=== PATIENT | female | born 1975 | race Caucasian/White ===

== ENCOUNTER 2022-11-19 05:41 | Outpatient (CLI) | payer BC ==
[~2022-11-19] VITALS: Ht 167.6 cm; Wt 123.4 kg
[2022-11-27] MEDS ORDERED: AMLO-250 PO (15:13)
[2022-11-27] MEDS ORDERED: FLUO20CA42 PO (15:13)
[2022-11-27] MEDS ORDERED: RT-ALBUINH INH (15:13)
[2022-11-27] MEDS ORDERED: ATOR10TA66 PO (15:13)
[2022-11-27] MEDS ORDERED: SEMA7TAB2 PO (15:13)
== END 2022-11-27 15:21 | disposition home or self-care (01) ==
LOC: PREOP 05:41
PROVIDERS: ATTEND Internal Medicine
DX: Z01.818 Encounter for other preprocedural examination (principal)

== ENCOUNTER → 2022-12-03 | Outpatient (CLI) | payer BC ==
[~2022-12-03] MED LIST: AMLO-250 PO; ATOR10TA66 PO; FLUO20CA42 PO; RT-ALBUINH INH; SEMA7TAB2 PO
--- NOTE | 2022-12-03 15:00 | Diagnostic Imaging Report ---
INDICATION: Palpable lump in the upper outer right breast. COMPARISON: No prior mammograms are available for comparison. TECHNIQUE: 2D and 3D bilateral diagnostic mammography was performed with CAD. A marker was placed at the area of palpable abnormality in the upper outer right breast. FINDINGS: Scattered fibroglandular densities are noted bilaterally. No mass or malignant-appearing microcalcifications are seen. Specifically, no underlying abnormality at the area of palpable abnormality in the upper outer right breast is identified. There are scattered benign calcifications. The axillae are unremarkable. IMPRESSION: No mammographic features suspicious for malignancy are identified. Even so, directed sonographic interrogation of the palpable abnormality in the upper outer right breast is recommended and will be performed today. ACR BI-RADS Category 0: Incomplete. (Needs additional imaging evaluation). Result letter will be mailed to the patient. Note: At least 10% of breast cancer is not imaged by mammography. Dictated by: Dictated on workstation # [id number]
--- NOTE | 2022-12-03 16:52 | Diagnostic Imaging Report ---
INDICATION: Palpable lump right breast. Correlation is made with diagnostic mammogram earlier same day. Sonographic interrogation of the area of lump in the outer right breast was performed. No sonographic abnormality is seen. No solid or cystic mass is detected. IMPRESSION: No sonographic abnormality is identified. ACR BI-RADS Category 1: Negative. Result letter will be mailed to the patient. Note: At least 10% of breast cancer is not imaged by mammography. BI-RADS Category 1 Dictated by: Dictated on workstation # [id number]
== END ==
LOC: RAD 13:55
PROVIDERS: ATTEND Nurse Practitioner Family
DX: N63.12 Unspecified lump in the right breast, upper inner quadrant (principal)
CPT/HCPCS: 76642; 77066; G0279; 77062

== ENCOUNTER 2022-12-19 09:34 | Day surgery (SDC) | payer BC ==
--- NOTE | 2022-11-14 05:38 | HISTORY AND PHYSICAL ---
COLONOSCOPY HISTORY AND PHYSICAL HISTORY OF PRESENT ILLNESS: The patient is a 47-year-old white female being referred for her first screening colonoscopy. She is deemed to be of average risk because she is not aware of any family history for colon cancer or colon polyps. She denies bright red blood per rectum, melena or change in bowel habit. PAST MEDICAL HISTORY: Significant for type 2 diabetes. She takes [ ] for hypertension and hyperlipidemia. Other medications include amlodipine 5 mg daily, atorvastatin 10 mg daily, fluoxetine 20 mg daily. She has no known history of coronary artery disease. PAST SURGICAL HISTORY: She has had total abdominal hysterectomy and 3 C-sections in the past. SOCIAL HISTORY: She is employed with no past smoking history and occasional small volume alcohol intake. REVIEW OF SYSTEMS: CONSTITUTIONAL: Denies night sweats, chills, fever or change in weight. PULMONARY: Denies cough, wheezing or shortness of breath. CARDIOVASCULAR: Denies chest discomfort, orthopnea, PND, or pedal edema. GASTROINTESTINAL: As noted in the HPI. FAMILY HISTORY: Mother is living, age 68 with no health problems. Father living, age 69 with history of migraine headaches. PHYSICAL EXAMINATION: GENERAL: Reveals a white female, appeared to be in no acute distress. VITAL SIGNS: Weight 279 pounds, blood pressure 130/80. HEENT: Unremarkable. Sclerae nonicteric. CHEST: Clear to auscultation. CARDIOVASCULAR: Reveals a regular rate and rhythm without murmur, S3, or S4. ABDOMEN: Soft, supple without mass, organomegaly, or tenderness. EXTREMITIES: Revealed no cyanosis, clubbing or edema. ASSESSMENT AND PLAN: The patient is being set up for her first screening colonoscopy deemed to be of average risk. Prep instructions were given and questions were answered. I thank you for the referral of this pleasant lady. Job ID: [id number] DocumentID: [id number] Dictated Date: 11/10/2022 16:39:33 Bloom Conveyor Operator Date: 11/10/2022 16:59:00 Dictated By: SHAQUILLE TEAGUE MD
[~2022-12-19] VITALS: Ht 167.6 cm; Wt 123.4 kg
[2022-12-19] MEDS ORDERED: LACTATED RINGERS 1,000 ML 1,000 ML IV STA (09:42)
[2022-12-19 10:14] VITALS: BP 132/82
--- NOTE | 2022-12-19 10:32 | Pre-Op Note & Conscious Sedat ---
Pre-Operative Progress Note Date H&P Reviewed: Dec 19, 2022 Time H&P Reviewed: 10:32 History & Physical: H&P Reviewed, Patient Examed, No changes noted Pre-Op Diagnosis: screening Moderate Sedation PreProcedure ASA Score 2 Airway Lungs Heart ASA score ASA 1: a normal healthy patient ASA 2: a patient with a mild systemic disease (mid diabetes, controlled hypertension, obesity ASA 3: a patient with a severe systemic disease that limits activity (angina, COPD, prior Myocardial infarction) ASA 4: a patient with an incapacitating disease that is a constant threat to life (CHF, renal failure) ASA 5: a moribund patient not expected to survive 24 hrs. (ruptured aneurysm) ASA 6: a declared brain- patient whose organs are being harvested. For emergent operations, add the letter E after the classification Mallampati Classification Grade 2 Sedation Plan Analgesia, Amnesia, Plan communicated to team members, Discussed options with patient/fam, Discussed risks with patient/fam The patient is an appropriate candidate to undergo the planned procedure, sedation, and anesthesia. The patient immediately re-assessed prior to indication. SHAQUILLE TEAGUE MD Dec 19, 2022 10:32
[2022-12-19 11:35] VITALS: BP 94/51
--- NOTE | 2022-12-19 11:35 | Anesthesia-General Post-Op ---
MAC Patient Condition Mental Status/LOC: Same as Preop Cardiovascular: Satisfactory Nausea/Vomiting: Absent Respiratory: Satisfactory Pain: Controlled Complications: Absent Post Op Complications Complications None Follow Up Care/Instructions Patient Instructions None needed. Anesthesiology Discharge Order Discharge Order Patient is doing well, no complaints, stable vital signs, no apparent adverse anesthesia problems. No complications reported per nursing. JEFFERY BEDOYA CRNA Dec 19, 2022 11:35
--- NOTE | 2022-12-19 11:39 | Progress Note-Post Operative ---
Post-Procedure Note Physician (s)/Box Car Washer (s) Physician SHAQUILLE TEAGUE MD Pre-Procedure Diagnosis Pre-Procedure Diagnosis: screening Post-Procedure Diagnosis Post-operative diagnosis: Prior to undergoing colonoscopy digital rectal evaluation was performed. Anal suture tone was normal and the perianal reflexes intact. Prominent anal papilla were noted with no other abnormalities being noted on digital inspection anal canal obstructive vault. The patient does have some prominent perianal skin folds without evidence for external hemorrhoid. The colonoscope was inserted into the rectum and under direct visualization advanced to the cecum. The cecum was identified by identification of the ileocecal valve and cecal strap. Photographic documentation was obtained. A careful inspection was made as the colonoscope withdrawn. Quality the prep was good. Findings: No evidence for external hemorrhoids were noted several small grade 1 internal hemorrhoid complexes were noted with prominent anal papilla but no evidence for neoplasia. The sigmoid colon descending colon and splenic flexure were unremarkable with no evidence of diverticular disease. Present in the distal transverse colon was a 3 mm sessile polyp was photographed and biopsied and ablated with no subsequent blood loss. The remainder the transverse colon ascending colon hepatic flexure and cecum were unremarkable. A/P 1. Several grade 1 internal hemorrhoid complexes were noted. 2. 1 diminutive polyp was removed in the distal transverse colon as long as there are no surprises histopathology report would advocate repeat screening colonoscopy in 10 years. I thank you for this pleasant lady sincerely Shaquille Teague MD CC: Dr. Drea GRIMALDO MD. SHAQUILLE TEAGUE MD Dec 19, 2022 11:39
[2022-12-19 11:40] VITALS: BP 98/55
[2022-12-19 11:45] VITALS: BP 126/77
[2022-12-19 11:50] VITALS: BP 126/77
[2022-12-19 11:58] VITALS: BP 126/77
== END 2022-12-19 12:14 | disposition home or self-care (01) ==
LOC: ENDO 09:34
PROVIDERS: ATTEND Internal Medicine
DX: Z12.11 Encounter for screening for malignant neoplasm of colon (principal); K63.5 Polyp of colon; K64.0 First degree hemorrhoids; E66.9 Obesity, unspecified; Z68.41 Body mass index [BMI] 40.0-44.9, adult
CPT/HCPCS: 82947